=== PATIENT | male | born 1985 | race Caucasian/White ===

== ENCOUNTER 2016-08-26 02:29 | Emergency (ER) | payer SELFPAY ==
[2016-08-26 02:03] LABS: INFLUENZA A NEG (NEG); INFLUENZA B NEG (NEG)
[~2016-08-26 02:29] MED LIST: AMOXICILLIN PO; COLCRYS0.6 MG PO; FAMOTIDINE PO; FLEXERIL PO; FLEXERIL10 MG PO; FLONASE 0.05% N16 G1; IBUPROFEN600 MG PO; IBUPROFEN800 MG PO; LORTAB 5/500 TA1 TA2 PO; MOTRIN600 MG PO; NAPROSYN500 MG PO; NO MEDICATIONS; ORUDIS75 M1 PO; PREDNISONE10 MG PO; SUDAFED PO; VOLTAREN75 MG PO; ZOFRAN ODT4 MG SL; ZOFRAN2 MG/M1 PO
== END 2016-08-26 02:30 | disposition home or self-care (01) ==
LOC: SED 02:29
PROVIDERS: Emergency Medicine
DX: J02.0 Streptococcal pharyngitis (principal)
CPT/HCPCS: 87804; 87880; 99283